=== PATIENT | female | born 1995 | race Two or more races ===

== ENCOUNTER 2021-12-29 05:50 | Inpatient (IN) | payer OTHER ==
[~2021-12-29] VITALS: Ht 157.5 cm; Wt 95.7 kg
[2021-12-29] MEDS ORDERED: PRENATAL + DHA1 EAC1 PO (08:58)
== END 2021-12-31 14:08 | disposition home or self-care (01) | DRG 807 ==
LOC: OB/GYN 05:50 → LDR 05:50 → OB/GYN 18:59
PROVIDERS: ADMIT Obstetrics & Gynecology; ATTEND Obstetrics & Gynecology
PROC: 10E0XZZ Delivery of Products of Conception, External Approach (ICD-10-PCS; principal; 2021-12-29)
PROC: 0KQM0ZZ Repair Perineum Muscle, Open Approach (ICD-10-PCS; 2021-12-29)
PROC: 4A1HXCZ Monitoring of Products of Conception, Cardiac Rate, External Approach (ICD-10-PCS; 2021-12-29)
DX: O70.1 Second degree perineal laceration during delivery (principal); Z3A.39 39 weeks gestation of pregnancy; Z37.0 Single live birth; Z20.822 Contact with and (suspected) exposure to COVID-19